=== PATIENT | female | born 1960 | race Caucasian/White ===

== ENCOUNTER 2016-05-22 13:19 | Day surgery (SDC) | payer OTHER ==
[~2016-05-22] VITALS: Ht 182.9 cm; Wt 77.0 kg
[2016-05-22] VITALS (8 sets, daily range): BP systolic 144–166; BP diastolic 79–96; PULSE 60–68; RESP 11–29; Ht 182.9 cm; Wt 77.0 kg
[~2016-05-22 13:19] MED LIST: LOSA1TAB19 PO; METO-53 PO
[2016-05-22] MEDS ORDERED: SOD CHLORIDE 0.9% 1,000 ML IV SCH (14:00)
[2016-05-22] MEDS ORDERED: CEFAZOLIN 2 GM/50 ML (PMX) 50 ML IVPB SCH (14:00)
[2016-05-22 14:24] LABS: ADD SCAN DIFF NO
[2016-05-22 14:26] LABS: BASOPHILS % 0.6 % (0.0-2.0); EOSINOPHILS % 0.3 % (0.0-7.0); HEMATOCRIT 43.3 % (37.0-47.0); HEMOGLOBIN 14.9 g/dl (12.0-16.0); LYMPHOCYTES # 1.9 10^3/ul (0.8-2.9); LYMPHOCYTES % 28.5 % (15.0-51.0); MEAN CORPUSCULAR HGB CONC 34.4 g/dl (32.0-37.0); MEAN PLATELET VOLUME 10.6 fl (7.4-10.4); MONOCYTE # 0.4 10^3/ul (0.3-0.9); MONOCYTES % 6.2 % (0.0-11.0); NEUTROPHIL # 4.3 10^3/ul (1.6-7.5); NEUTROPHILS % 64.1 % (39.0-77.0); PLATELET COUNT 207 10^3/UL (140-415); RED BLOOD COUNT 4.51 10^6/ul (4.20-5.40); RED CELL DISTRIBUTION WIDTH 12.8 % (11.5-14.5); WHITE BLOOD COUNT 6.6 10^3/ul (4.8-10.8)
[2016-05-22 14:37] LABS: INR 0.87; PROTIME 11.8 Sec (12.2-14.2); PT RATIO 0.9
[2016-05-22 14:38] LABS: PARTIAL THROMBOPLASTIN TIME 27.8 Sec (25.0-35.0)
--- NOTE | 2016-05-22 14:54 | RADRPT ---
PROCEDURE: Chest Radiograph. CLINICAL INDICATION: Preop for cyst removal. TECHNIQUE: Single frontal chest radiograph. COMPARISON: None available FINDINGS: The cardiomediastinal silhouette is within normal limits. No infiltrate or effusion is seen. Th e bones are intact. IMPRESSION: 1. Unremarkable chest radiograph. RPTAT: KK .Kendall Toussaint MD, MD Date Time Electronically viewed and signed by .Kendall Toussaint MD, on 05/22/2016 14:54 .B/
[2016-05-22] MEDS ORDERED: BUPIVACAINE 0.25% (MPF) 30 ML INJ ONE (15:10)
[2016-05-22 15:19] LABS: CREATININE 0.55 mg/dl (0.44-1.00); POTASSIUM 3.6 mmol/L (3.5-5.1)
[2016-05-22] MEDS ORDERED: ONDANSETRON 4 MG INJ IV PRN (16:30)
[2016-05-22] MEDS ORDERED: METOCLOPRAMIDE 10 MG INJ IV PRN (16:30)
[2016-05-22] MEDS ORDERED: MEPERIDINE 25 MG INJ IV PRN (16:30)
[2016-05-22] MEDS ORDERED: FENTAnyl 50 MCG/ML VIAL IV PRN (16:30)
[2016-05-22] MEDS ORDERED: DIPHENHYDRAMINE 50 MG INJ IV PRN (16:30)
[2016-05-22] MEDS ORDERED: MIDAZOLAM 1 MG/ML 2 ML INJ ONE (16:33)
[2016-05-22] MEDS ORDERED: FENTAnyl 50 MCG/ML VIAL ONE (16:33)
[2016-05-22] MEDS ORDERED: LIDOCAINE 2% (MDV) 20 ML INJ ONE (16:37)
[2016-05-22] MEDS ORDERED: ASPI81TA3 PO (16:45)
[2016-05-22] MEDS ORDERED: HYDROCODONE/APAP (5/325) TAB PO ONE (17:00)
[2016-05-22] MEDS ORDERED: PROPOFOL 20 ML ONE (17:06)
[2016-05-22] MEDS ORDERED: CEFAZOLIN 1 GM INJ ONE (17:06)
[2016-05-22] MEDS ORDERED: LIDOCAINE 2% (SDV) 5 ML INJ ONE (17:06)
--- NOTE | 2016-05-22 17:35 | OPR ---
DATE OF OPERATION: 05/22/2016 INDICATION: This is a 55-year-old female with a sternal mass. She requests surgical excision. Ris ks, alternatives, benefits, and personnel were discussed with the patient. The patient expressed un derstanding and consents to the operation. PREOPERATIVE DIAGNOSIS: Sternal mass. POSTOPERATIVE DIAGNOSIS: Sternal mass. OPERATION PERFORMED: 1. Extraneous sternal mass with 3 cm size incision and 2 x 1 cm mass. 2. Localized adjacent tissue transfer with the use of skin flaps. SURGEON: Mustapha Kebede MD SPECIMEN: Sternal mass. COMPLICATIONS: None. ANESTHESIA: MAC. PROCEDURE: The patient was taken to the OR and prepped and draped in the usual sterile fashion. Ba rgical timeout was performed. IV antibiotics were given. An elliptical incision was made over the sternal mass with a 15 blade after local anesthesia was infiltrated. Dissection cautery was carried down to the mass and circumferentially excised. Due to the tissue defect, localized adjacent tissu e transfer with the use of skin flaps to perform multi-layer closure with interrupted 3-0 Vicryl and running 4-0 Monocryl. Steri-Strips and dry dressings were applied. Dictated By: MUSTAPHA SCHOFIELD/ROOSEVELT Conf#: [id number] DID#: [id number]
--- NOTE | 2016-05-26 17:53 | RADRPT ---
Vent Rate: 65 bpm RR Interval: 0 msec [place] Interval: 114 msec QRS Duration: 84 msec QT Interval: 448 msec QTC Interval: 465 msec P-R-T [place]: 64 - 72 - 83 degrees Normal sinus rhythm T inverted in aVL Abnormal ECG Electronically Signed By: Rene Jameson [id number]
== END 2016-05-22 18:18 | disposition home or self-care (01) ==
LOC: SDS 13:19
PROVIDERS: ATTEND Surgery
DX: L72.0 Epidermal cyst (principal); I10 Essential (primary) hypertension
CPT/HCPCS: 14000; 71010; 80048; 85025; 85610; 85730; 88304; 93005; J0690; J2250; J3010; Z7512; Z7610